=== PATIENT | female | born 1940 | race Caucasian/White ===

== ENCOUNTER 2016-07-26 16:53 | Emergency (ER) | payer BC, OTHER ==
[~2016-07-26] VITALS: Ht 149.9 cm; Wt 56.0 kg
[2016-07-26 17:04] VITALS: Ht 149.9 cm; Wt 56.0 kg
[2016-07-26 19:17] VITALS: BP 147/79; PULSE 92; RESP 18
--- NOTE | 2016-07-26 19:43 | ERD ---
ER Documentation Chief Complaint Date/Time DATE: 07/26/16 TIME: 19:42 Chief Complaint pt bib family with c/o "prolapsed uterus" at US today, PMD out of town HPI Patient is a 76-year-old female with hypertension who presents with a pelvic issue. The patient has a uterus which is protruding through the vagina. This is been there for the past 3 months. The patient went to get an ultrasound today and they were sent to the emergency department. Upon review of old medical records this the patient's first visit to the emergency department. There is been no bleeding. The patient's primary doctor is Dr. Kendall. She has not seen a automobile technician as of yet. ROS All systems reviewed and are negative except as per history of present illness. Allergies Allergies: Coded Allergies: No Known Allergy (Unverified , 07/26/16) PMhx/Soc History of Surgery: No Anesthesia Reaction: No Hx Neurological Disorder: No Hx Respiratory Disorders: No Hx Cardiac Disorders: Yes (HTN,high cholesterol) Hx Psychiatric Problems: No Hx Miscellaneous Medical Probl: Yes (diabetes) Hx Alcohol Use: No Hx Substance Use: No Hx Tobacco Use: No Smoking Status: Never smoker FmHx Family History: diabetes Physical Exam Vitals Vital Signs Date Time Temp Pulse Resp B/P Pulse Ox O2 Delivery O2 Flow Rate FiO2 07/26/16 19:17 92 18 147/79 96 Room Air 07/26/16 17:04 98.3 90 16 153/90 99 Physical Exam Const: No acute distress Head: Atraumatic Eyes: Normal Conjunctiva ENT: Normal External Ears, Nose and Mouth. Neck: Full range of motion..~ No meningismus. Resp: Clear to auscultation bilaterally Cardio: Regular rate and rhythm, no murmurs Abd: Soft, non tender, non distended. Normal bowel sounds Skin: No petechiae or rashes Back: No midline or flank tenderness Ext: No cyanosis, or edema Neur: Awake and alert : Patient has an obvious uterine prolapse at this time, I attempted to reduce uterine prolapse but it very quickly pushes back out through the vagina Procedures/MDM Patient is a 76-year-old female who presents with uterine prolapse. I discussed with the family the options of using a pessary versus having surgery to repair this or do a hysterectomy. The patient will need to follow-up with a automobile technician for further treatment. I do not believe the patient requires admission at the hospital at this time. I believe outpatient management is appropriate. The patient can return for worsening symptoms. Departure Diagnosis: Primary Impression: Uterine prolapse Condition: Fair Patient Instructions: Pelvic Organ Prolapse: Surgery for Uterine Prolapse Referrals: ALIZE EARL MD Additional Instructions: Specialist:Usted tiene nicola condicin mdica que requiere que maribel a un especialista dentro de los prximos 1-2 olvera.POR FAVOR,CON MIMS SEGUIMIENTO DE PRIMARIA PHSICIAN refferal. SI USTED NO TIENE UN MDICO GENERAL Y / O USTED NO PUEDE PAGAR abbie a un mdico,los siguientes saez RECURSOS sido suministrado a usted. ES MIMS RESPONSABILIDAD PARA SER VISTOS POR EL ESPECIALISTA: OYSI PRESLEY MD Jul 26, 2016 19:43
== END 2016-07-26 19:17 | disposition home or self-care (01) ==
LOC: E/R 16:53
DX: N81.4 Uterovaginal prolapse, unspecified (principal); I10 Essential (primary) hypertension; E11.9 Type 2 diabetes mellitus without complications
CPT/HCPCS: 99282

== ENCOUNTER 2016-12-27 06:48 | Day surgery (SDC) | payer BC ==
--- NOTE | 2016-12-26 16:28 | PREOPHP ---
DATE OF ADMISSION: 12/27/2016 CHIEF COMPLAINT: The patient was brought by the family complaining of something coming through the vagina for several months now. HISTORY OF PRESENT ILLNESS: This is a 76-year-old female, 8, para 8, has been menopausal for many years, who lately has been complaining of something coming from the vagina. The family has been aware of this also for a while. She was brought in actually with diagnosis of uterine prolapse. She has been treated with a pessary before, but had great difficulty using this, and both the patient and family desire a surgical approach and solution to the problem. A Le Fort procedure was proposed to the family and patient. The alternatives to this, the continued use of pessary, the benefits, the risks and possible complications were discussed in detail. This was done both in Urdu and Macedonian. All their questions were answered to their satisfaction, and she signed the appropriate surgical informed consent. PAST MEDICAL HISTORY: The patient has a long history of hypertension, been treated with several medications by her primary physician. She had a medical clearance from her physician actually for this surgery to take place. She denies diabetes, denies renal disease, denies liver disease, denies neurological problems. ALLERGIES: SHE HAS NO ALLERGIES. OBSTETRICAL HISTORY: Patient had 8 pregnancies and 8 vaginal deliveries. FAMILY HISTORY: Entirely unremarkable. REVIEW OF SYSTEMS: A 12-point review of systems is noncontributory. PHYSICAL EXAMINATION: Well developed and nourished, in no distress. Alert and oriented x3. Height of 4 feet 2 inches and weight 130 pounds. BMI is 29. VITAL SIGNS: Showed temperature to be 98; blood pressure 170/78; respirations 60/min; pulse is 80/min, regular. HEENT: Within normal limits. Pupils are PERRLA. NECK: Supple. Thyroid is not palpable. There is no lymphadenopathy. BREASTS: Showed no masses or lumps. LUNGS: Are clear to percussion, auscultation. HEART: Revealed normal sinus rhythm without a murmur. ABDOMEN: Soft. No organomegalies or hernias. PELVIC EXAM: Uterus is thoroughly prolapsed; it is a complete procidentia. Bimanual exam, uterus small, mobile. There are no adnexal masses. EXTREMITIES: Examination of lower extremities is positive for bilateral varicosities in both legs. There is no ankle edema. 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 PLAN: The patient is to be admitted for a Le Fort procedure under general anesthesia. Dictated By: Joe Cabello MD /[email or web address]/manan /Document#: [id number]
[~2016-12-27] VITALS: Ht 144.8 cm; Wt 45.4 kg
[2016-12-27] VITALS (29 sets, daily range): BP systolic 128–189; BP diastolic 73–95; PULSE 82–96; RESP 16–29
[~2016-12-27 06:48] MED LIST: LACTATED RINGER'S 1,000 ML IV* SCH
[2016-12-27] MEDS ORDERED: LIDOCAINE 2%/EPI 30 ML INJ ONE (07:55)
[2016-12-27] MEDS ORDERED: osteoporosis med PO (07:58)
[2016-12-27] MEDS ORDERED: bp med PO (07:58)
[2016-12-27] MEDS ORDERED: FENTAnyl 50 MCG/ML VIAL ONE (08:06)
[2016-12-27] MEDS ORDERED: PROPOFOL 20 ML ONE (08:24)
[2016-12-27] MEDS ORDERED: CEFAZOLIN 1 GM INJ ONE (08:24)
[2016-12-27] MEDS ORDERED: LIDOCAINE 2% (SDV) 5 ML INJ ONE (08:24)
[2016-12-27] MEDS ORDERED: SUCCINYLCHOLINE CHLORIDE 100 MG/5 ML SYG IV ONE (08:24)
[2016-12-27] MEDS ORDERED: ROCURONIUM 50 MG INJ ONE (08:24)
[2016-12-27] MEDS ORDERED: LABETALOL HCL 20MG INJ IV PRN (08:30)
[2016-12-27] MEDS ORDERED: DIPHENHYDRAMINE 50 MG INJ IV PRN (08:30)
[2016-12-27] MEDS ORDERED: FENTAnyl 50 MCG/ML VIAL IV PRN ×2 (08:30)
[2016-12-27] MEDS ORDERED: METOCLOPRAMIDE 10 MG INJ IV PRN (08:30)
[2016-12-27] MEDS ORDERED: HYDROmorphONE (0.2 MG/ML) 10ML SYG IV PRN ×2 (08:30)
[2016-12-27] MEDS ORDERED: ONDANSETRON 4 MG INJ IV PRN ×2 (08:30→10:00)
[2016-12-27] MEDS ORDERED: hydrALAzine 20 MG INJ IV PRN (08:30)
[2016-12-27] MEDS ORDERED: MEPERIDINE 25 MG INJ IV PRN (08:30)
[2016-12-27] MEDS ORDERED: SUGAMMADEX SODIUM 200 MG/2 ML VIAL IV ONE (09:26)
--- NOTE | 2016-12-27 09:42 | OPR ---
Operative Report Planned Procedure Free Text/Dictation Le Forte procedure under general anesthesia.No complications. Procedure date Dec 27, 2016 Procedure(s) Le forte procedure Performed by Dr.Carlos Bobby Cabello Anesthesiologist: APOLINAR SEGURA Anesthesia Type: general Procedure Description Under satisfactory [] anesthesia, a Le Forte procedure was done in the usual fashion.No complications. Post-Procedure Post-procedure diagnosis Same Findings: Complete procidentia. Complication(s): no Pt Condition post procedure: stable Disposition: PACU Post-procedure comments All counts correct 3 times. Physician Certification I, the undersigned physician, hereby certify that I have discussed the procedure described in this consent form with this patient (or the patient's legal solar sales representative), including: * The risk and benefits of the procedure; * Any adverse reactions that may reasonably be expected to occur; * Any alternative efficacious methods of treatment which may be medically viable ; * The potential problems that may occur during recuperation; * Potential for blood transfusion and associated risks/benefits; and * Any research or economic interest I may have regarding this treatment. I further certify that the patient/legally responsible person was encouraged to ask question and that all questions were answered. CINDY CABELLO MD Dec 27, 2016 09:42
[2016-12-27] MEDS ORDERED: CEFAZOLIN 1 GM/50 ML (PMX) 50 ML IVPB SCH (10:00)
[2016-12-27] MEDS ORDERED: morphine 2 MG INJ IV PRN (10:00)
[2016-12-27] MEDS ORDERED: IBUPROFEN 600 MG TAB PO PRN (10:00)
[2016-12-27] MEDS ORDERED: OXYCODONE/ACETAMINOPHEN (5/325) TAB PO PRN ×2 (10:00)
[2016-12-27] MEDS ORDERED: ACETAMINOPHEN 325 MG TAB PO PRN (10:00)
--- NOTE | 2016-12-27 10:58 | OPR ---
DATE OF OPERATION: 12/27/2016 ANESTHESIOLOGIST: Dr. Michelle. PREOPERATIVE DIAGNOSIS: Complete uterus prolapse, total procidentia. POSTOPERATIVE DIAGNOSIS: Complete uterus prolapse, total procidentia. OPERATION PERFORMED: Le Fort procedure. ANESTHESIA: General with Dr. Michelle. ESTIMATED BLOOD LOSS: 50 cc or less. COMPLICATIONS: None. SPECIMENS: The vaginal burrows were sent to Pathology. PROCEDURE AND FINDINGS: With the patient under general anesthesia, laid on the table in the dorsal lithotomy position. Lower abdomen, upper thighs, perineum and vagina were prepped with Betadine, and then a Zayas catheter was inserted. A sterile dressing was applied. A small weighted retractor was placed on the posterior vaginal wall and the vaginal mucosa was infiltrated anteriorly and posteriorly with a diluted solution of 2 percent lidocaine with epinephrine, a total of 20 cc. Then, the dissection was started anteriorly by removing the anterior vaginal mucosa all the way up to the vesicourethral angle. Posteriorly, a similar piece of vaginal mucosa was also removed. Then the uterus was imbricated with several sutures of 0 Vicryl. This was done in several layers until the uterus had disappeared in the pelvis. Then the vaginal mucosa was closed with a continuous stitch of double 0 Vicryl. Good hemostasis was observed. The urine was clear and abundant in the bag. A rectal examination was done and no sutures were palpated there. The patient withstood the procedure well, was taken to recovery room with all vital signs stable. Needle, sponge, and instrument count, during the procedure was correct twice. Dictated By: Joe Cabello MD /camron/viki /Document#: [id number]
[2016-12-27 13:42] LABS: ALBUMIN 4.3 g/dl (3.3-4.9); ALBUMIN/GLOBULIN RATIO 1.3; BILIRUBIN,INDIRECT 0.3 mg/dl (0-1.1); BILIRUBIN,TOTAL 0.3 mg/dl (0.2-1.3); CALCIUM 9.8 mg/dl (8.4-10.2); CREATININE 0.74 mg/dl (0.44-1.00); TOTAL PROTEIN 7.6 g/dl (6.1-8.1)
--- NOTE | 2016-12-27 15:07 | PD.PPDC ---
[employer] REPRESENTATIVE Discharge Instruction Diagnosis Final Diagnosis: uterine prolapse cystocele Condition Patient Condition: Stable Diet Diet: Resume Regular Diet Activity/Restrictions Activity: May Shower Restrictions: No Exercising No Lifting Minimize Stair-climbing No Sexual Activity Nothing in the Vagina No [place] No Tampons, douche Follow-up Follow-up with Physician: 8, Week/Weeks Return to clinic for MECHANIC/WELDER Instructions: Fever greater than 101 Chills Worsening abdominal pain Excessive Vaginal Bleeding More than 2 pads per hour Unable to tolerate diet MATTHEW CASTILLO MD Dec 27, 2016 15:07
[2016-12-27] MEDS: LACTATED RINGER'S 1,000 ML IV SCH ×2 (18:10→22:15)
[2016-12-27] MEDS: CEFAZOLIN 1 GM/50 ML (PMX) 50 ML IVPB SCH (22:16)
[2016-12-28 05:23] LABS: BASOPHILS % 0.1 % (0.0-2.0); EOSINOPHILS % 0.3 % (0.0-7.0); HEMATOCRIT 33.2 % (37.0-47.0); HEMOGLOBIN 11.2 g/dl (12.0-16.0); LYMPHOCYTES # 1.7 10^3/ul (0.8-2.9); LYMPHOCYTES % 21.1 % (15.0-51.0); MEAN CORPUSCULAR HEMOGLOBIN 29.2 pg (29.0-33.0); MEAN CORPUSCULAR HGB CONC 33.7 g/dl (32.0-37.0); MEAN CORPUSCULAR VOLUME 86.7 fl (82.0-101.0); MEAN PLATELET VOLUME 10.1 fl (7.4-10.4); MONOCYTE # 0.6 10^3/ul (0.3-0.9); MONOCYTES % 7.9 % (0.0-11.0); NEUTROPHILS % 70.1 % (39.0-77.0); PLATELET COUNT 205 10^3/UL (140-415); RED BLOOD COUNT 3.83 10^6/ul (4.20-5.40); RED CELL DISTRIBUTION WIDTH 12.1 % (11.5-14.5); WHITE BLOOD COUNT 7.9 10^3/ul (4.8-10.8)
[2016-12-28] MEDS: CEFAZOLIN 1 GM/50 ML (PMX) 50 ML IVPB SCH (06:19)
[2016-12-28 07:00] VITALS: BP 142/70; RESP 18
[2016-12-28 08:23] LABS: ALBUMIN 3.3 g/dl (3.3-4.9); ALBUMIN/GLOBULIN RATIO 1.26; BILIRUBIN,INDIRECT 0.4 mg/dl (0-1.1); BILIRUBIN,TOTAL 0.4 mg/dl (0.2-1.3); CALCIUM 9.3 mg/dl (8.4-10.2); CREATININE 0.57 mg/dl (0.44-1.00); TOTAL PROTEIN 5.9 g/dl (6.1-8.1)
[2016-12-28 08:30] LABS: POTASSIUM 2.6 mmol/L (3.5-5.1)
[2016-12-28] MEDS ORDERED: POTASSIUM CHLORIDE 250 ML IVPB ONE (10:00)
[2016-12-28 14:00] VITALS: BP 141/76; RESP 20
[2016-12-28] MEDS: LACTATED RINGER'S 1,000 ML IV SCH ×2 (15:10→21:55)
--- NOTE | 2016-12-28 16:10 | PN ---
Date/Time of Note Date/Time of Note DATE: 12/28/16 TIME: 16:08 Assessment/Plan Lines/Catheters IV Catheter Type (from Nrsg): Peripheral IV Dacosta in Place (from Nrsg): Yes Assessment/Plan Chief Complaint/Hosp Course A s/p Le Fort procedure stable Hypokalemia P remove dacosta in am poss discharge home in am after voiding Problems: Subjective 24 Hr Interval Summary Constitutional: no complaints Feeding: advancing diet Pain Control: well controlled Exam/Review of Systems Vital Signs Vitals Vital Signs Date Time Temp Pulse Resp B/P Pulse Ox O2 Delivery O2 Flow Rate FiO2 12/28/16 14:00 97.9 83 20 141/76 97 12/27/16 12:45 Room Air 12/27/16 09:47 8.0 Intake and Output 12/27/16 12/27/16 12/28/16 15:00 23:00 07:00 Intake Total 0 ml 650 ml 1120 ml Output Total 455 ml 1700 ml Balance -455 ml 650 ml -580 ml Exam Constitutional: alert, oriented, well developed Psych: nl mood/affect, no complaints Head: atraumatic, normocephalic Eyes: EOMI, nl conjunctiva, nl lids, nl sclera ENMT: mucosa pink and moist, nl external ears & nose, nl lips & teeth, nl nasal mucosa & septum Neck: non-tender, supple Respiratory: clear to auscultation, normal air movement Cardiovascular: nl pulses, regular rate and rhythm Gastrointestinal: nl liver, spleen, non-tender, soft Musculoskeletal: nl extremities to inspection, nl gait and stance Extremities: normal pulses Neurological: LBD TEACHER II-XII intact, nl mental status, nl speech, nl strength Skin: nl turgor, rash or lesions Lymph: nl lymph nodes Results Result Diagram: 12/28/16 0455 12/28/16 0455 MATTHEW CASTILLO MD Dec 28, 2016 16:10
[2016-12-29] MEDS: LACTATED RINGER'S 1,000 ML IV SCH ×2 (01:42→11:42)
[2016-12-29 01:58] VITALS: BP 153/73; RESP 18
[2016-12-29 05:30] LABS: BASOPHILS % 0.5 % (0.0-2.0); EOSINOPHILS # 0.1 10^3/ul (0.0-0.5); EOSINOPHILS % 1.5 % (0.0-7.0); HEMATOCRIT 33.4 % (37.0-47.0); HEMOGLOBIN 11.3 g/dl (12.0-16.0); LYMPHOCYTES # 1.8 10^3/ul (0.8-2.9); LYMPHOCYTES % 27.2 % (15.0-51.0); MEAN CORPUSCULAR HEMOGLOBIN 29.8 pg (29.0-33.0); MEAN CORPUSCULAR HGB CONC 33.8 g/dl (32.0-37.0); MEAN CORPUSCULAR VOLUME 88.1 fl (82.0-101.0); MEAN PLATELET VOLUME 10.5 fl (7.4-10.4); MONOCYTE # 0.6 10^3/ul (0.3-0.9); MONOCYTES % 8.5 % (0.0-11.0); NEUTROPHILS % 61.5 % (39.0-77.0); PLATELET COUNT 214 10^3/UL (140-415); RED BLOOD COUNT 3.79 10^6/ul (4.20-5.40); RED CELL DISTRIBUTION WIDTH 12.3 % (11.5-14.5); WHITE BLOOD COUNT 6.5 10^3/ul (4.8-10.8)
[2016-12-29 06:08] LABS: ALBUMIN 3.2 g/dl (3.3-4.9); ALBUMIN/GLOBULIN RATIO 1.14; BILIRUBIN,INDIRECT 0.2 mg/dl (0-1.1); BILIRUBIN,TOTAL 0.2 mg/dl (0.2-1.3); CALCIUM 9.1 mg/dl (8.4-10.2); CREATININE 0.59 mg/dl (0.44-1.00)
[2016-12-29 06:31] LABS: POTASSIUM 2.6 mmol/L (3.5-5.1)
[2016-12-29] MEDS ORDERED: POTASSIUM CHLORIDE (SR) 20 MEQ TAB PO STA (06:50)
[2016-12-29 07:36] VITALS: BP 173/88; RESP 18
[2016-12-29] MEDS ORDERED: POTASSIUM CHLORIDE 250 ML IVPB ONE (07:45)
[2016-12-29 08:22] VITALS: BP 143/87; PULSE 81
--- NOTE | 2016-12-29 08:56 | CONS ---
Date/Time of Note Date/Time of Note DATE: 12/29/16 TIME: 08:43 Assessment/Plan Assessment/Plan Problems: (1) Hypokalemia Status: Acute Comment: - K this am 2.6 and replacement give via IV and PO. Will check Mg level as well and replace as needed. Repeat BMP for 1400 - Patient not experiencing vomiting, diarrhea, and not on any medications to explain hypokalemia - Renal function stable as well - Pain control per primary team - All documentation and labs were reviewed. All patients questions were answered and concerns addressed. >30 mins was spent discussing plan with patient. Thank you for this consultation. Please call with questions. Consultation Date/Type/Reason Admit Date/Time 12/27/16 Date of Consultation: Dec 29, 2016 Type of Consultation: Internal Medicine Reason for Consultation Management of hypokalemia Referring Provider: MATTHEW CASTILLO MD Hx of Present Illness 76-year-old menopausal female, 8, para 8, presented to hospital for Le fort procedure on 12/27/16 after experiencing uterine prolapse. Patient's surgery was uneventful and dacosta in place. Patient was found to have a potassium level of 2.6 this am and medicine was consulted for comanagement. Patient resting comfortable and only complaining of throat pain. Denies any fevers, chills, nausea, vomiting, chest pain, palpitations, shortness of breath , or abdominal issues. She has not had a bowel movement yet today as well but states has not had any episodes of diarrhea previously. Constitutional: no complaints Eyes: no complaints ENT: sore throat Respiratory: no complaints Cardiovascular: no complaints, No chest pain, No lightheadedness, No palpitations Gastrointestinal: No decreased appetite, No diarrhea, No nausea, No passing stool, No vomiting Genitourinary: No discharge, No hematuria Musculoskeletal: back pain Skin: no complaints Neurologic: no complaints Endocrine: no complaints Lymphatic: no complaints Psychological: nl mood/affect, no complaints Immunologic: no complaints Past Medical History Medical History: hypertension Past Surgical History Past Surgical Hx: other (Le fort procedure) Family History Significant Family History: no pertinent family hx Social History Alcohol Use: none Smoking Status: Never smoker Drug Use: none Exam/Review of Systems Vital Signs Vitals Vital Signs Date Time Temp Pulse Resp B/P Pulse Ox O2 Delivery O2 Flow Rate FiO2 12/29/16 08:22 81 143/87 12/29/16 07:36 98.1 18 95 12/27/16 12:45 Room Air 12/27/16 09:47 8.0 Intake and Output 12/28/16 12/28/16 12/29/16 15:00 23:00 07:00 Intake Total 2090 ml 280 ml Output Total 1200 ml Balance 890 ml 280 ml Exam Constitutional: alert, oriented, well developed, No distress Psych: no complaints Head: atraumatic, normocephalic Eyes: EOMI, nl sclera ENMT: mucosa pink and moist Neck: non-tender, supple Respiratory: clear to auscultation, normal air movement, No crackles/rales, No diminished breath sounds, No wheezing Cardiovascular: nl pulses, regular rate and rhythm, No systolic murmur Gastrointestinal: non-tender, soft, No distended, No rebound or guarding Musculoskeletal: nl extremities to inspection Extremities: normal pulses Neurological: DITCHING MACHINE ENGINEER II-XII intact, nl speech Skin: nl turgor Lymph: nl lymph nodes Results Result Diagram: 12/29/1643612/29/16436 Results 24 hrs Laboratory Tests Test 12/29/16 04:37 White Blood Count 6.5 Red Blood Count 3.79 L Hemoglobin 11.3 L Hematocrit 33.4 L Mean Corpuscular Volume 88.1 Mean Corpuscular Hemoglobin 29.8 Mean Corpuscular Hemoglobin Concent 33.8 Red Cell Distribution Width 12.3 Platelet Count 214 Mean Platelet Volume 10.5 H Neutrophils % 61.5 Lymphocytes % 27.2 Monocytes % 8.5 Eosinophils % 1.5 Basophils % 0.5 Nucleated Red Blood Cells % 0.0 Neutrophils # (Manual) 4.0 Lymphocytes # 1.8 Monocytes # 0.6 Eosinophils # 0.1 Basophils # 0.0 Nucleated Red Blood Cells # 0.0 Sodium Level 138 Potassium Level 2.6 *L Chloride Level 101 Carbon Dioxide Level 32 H Anion Gap 8 Blood Urea Nitrogen 9 Creatinine 0.59 Glucose Level 102 Calcium Level 9.1 Total Bilirubin 0.2 Direct Bilirubin 0.00 Indirect Bilirubin 0.2 Aspartate Amino Transf (AST/SGOT) 16 Alanine Aminotransferase (ALT/SGPT) 26 Alkaline Phosphatase 54 Total Protein 6.0 L Albumin 3.2 L Globulin 2.80 Albumin/Globulin Ratio 1.14 Medications Medications Current Medications Lactated Ringer's (Lr) 1,000 ml @ 100 mls/hr Q10H IV Last administered on 21:55; Admin Dose 100 MLS/HR; Start 12/27/16 at 09:42 Acetaminophen (Tylenol Tab) 650 mg Q4H PRN PO PAIN LEVEL 1-5; Start 12/27/16 at 10:00 Ibuprofen (Motrin) 600 mg Q8H PRN PO PAIN AND OR ELEVATED TEMP; Start 12/27/16 at 10:00 Oxycodone/ Acetaminophen (Percocet (5/ 325)) 1 tab Q4H PRN PO PAIN LEVEL 6-10 Last administered on 12/28/16 14:14; Admin Dose 1 TAB; Start 12/27/16 at 10:00 Morphine Sulfate (morphine) 2 mg Q2H PRN IV BREAKTHROUGH PAIN Last administered on 12/27/16 20:09; Admin Dose 2 MG; Start 12/27/16 at 10:00 Ondansetron HCl (Zofran Inj) 4 mg Q6H PRN IV NAUSEA AND/OR VOMITING; Start 12/27 at 10:00 Oxycodone/ Acetaminophen 2 tab 2 tab Q4H PRN PO PAIN; Start 12/27/16 at 10:00 Potassium Chloride (KCl 40 MEQ/250 ML NS) 250 ml @ 62.5 mls/hr ONCE ONCE IVPB Last administered on 12/29/16 08:16; Admin Dose 62.5 MLS/HR; Start 12/29/16 at 07:45; Stop 12/29/16 at 11:44 BRI MCKEON MD Dec 29, 2016 08:55
[2016-12-29 14:59] LABS: CALCIUM 9.8 mg/dl (8.4-10.2); CREATININE 0.62 mg/dl (0.44-1.00); POTASSIUM 4.2 mmol/L (3.5-5.1)
[2016-12-29 16:40] VITALS: BP 147/84; RESP 20
--- NOTE | 2016-12-29 17:15 | DS ---
Date/Time of Note Date/Time of Note DATE: 12/29/16 TIME: 17:09 Discharge Summary Admission/Discharge Info Admit Date/Time 12/27/16 Discharge Date/Time 12/29/16 1900 Discharge Diagnosis s/p LeFort procedure stable Patient Condition: Stable Consults hospitalist for hypokalemia Procedures Le Fort procedure Hospital Course 76-year-old menopausal female, 8, para 8, presented to hospital for Le fort procedure on 12/27/16 after experiencing uterine prolapse. Patient's surgery was uneventful and dacosta in place. Patient was found to have a potassium level of 2.6 this am and medicine was consulted for comanagement. Patient resting comfortable and only complaining of throat pain. Denies any fevers, chills, nausea, vomiting, chest pain, palpitations, shortness of breath , or abdominal issues. She has not had a bowel movement yet today as well but states has not had any episodes of diarrhea previously. potassium level 2.6 had infusion 40 meq went up to 4.2 had bowel movement , if patient void after dacosta out discharge home if not able to void go home with leg bag Home Meds Reported Medications [osteoporosis med] No Conflict Check, PO once a week 12/27/16 [bp med] No Conflict Check, PO DAILY 12/27/16 Follow-up Plan call for f/u appointment Primary Care Provider Angie Kendall Pending Labs Laboratory Tests Test 12/29/16 04:37 12/29/16 14:05 White Blood Count 6.510^3/ul (4.8-10.8) Red Blood Count 3.7910^6/ul (4.20-5.40) Hemoglobin 11.3g/dl (12.0-16.0) Hematocrit 33.4% (37.0-47.0) Mean Corpuscular Volume 88.1fl (82.0-101.0) Mean Corpuscular Hemoglobin 29.8pg (29.0-33.0) Mean Corpuscular Hemoglobin Concent 33.8g/dl (32.0-37.0) Red Cell Distribution Width 12.3% (11.5-14.5) Platelet Count 54793^3/UL (140-415) Mean Platelet Volume 10.5fl (7.4-10.4) Neutrophils % 61.5% (39.0-77.0) Lymphocytes % 27.2% (15.0-51.0) Monocytes % 8.5% (0.0-11.0) Eosinophils % 1.5% (0.0-7.0) Basophils % 0.5% (0.0-2.0) Nucleated Red Blood Cells % 0.0/100WBC (0.0-0.0) Neutrophils # (Manual) 4.010^3/ul (1.7-7.5) Lymphocytes # 1.810^3/ul (0.8-2.9) Monocytes # 0.610^3/ul (0.3-0.9) Eosinophils # 0.110^3/ul (0.0-0.5) Basophils # 0.010^3/ul (0.0-0.1) Nucleated Red Blood Cells # 0.010^3/ul (0.0-0.0) Sodium Level 138mmol/L (135-144) 141mmol/L (135-144) Potassium Level 2.6mmol/L (3.5-5.1) 4.2mmol/L (3.5-5.1) Chloride Level 101mmol/L (97-110) 106mmol/L (97-110) Carbon Dioxide Level 32mmol/L (21-31) 26mmol/L (21-31) Anion Gap 8 (8-16) 13 (8-16) Blood Urea Nitrogen 9mg/dl (7-20) 11mg/dl (7-20) Creatinine 0.59mg/dl (0.44-1.00) 0.62mg/dl (0.44-1.00) Glucose Level 102mg/dl (70-220) 131mg/dl (70-220) Calcium Level 9.1mg/dl (8.4-10.2) 9.8mg/dl (8.4-10.2) Magnesium Level 1.7mg/dl (1.7-2.5) Total Bilirubin 0.2mg/dl (0.2-1.3) Direct Bilirubin 0.00mg/dl (0.00-0.20) Indirect Bilirubin 0.2mg/dl (0-1.1) Aspartate Amino Transf (AST/SGOT) 16IU/L (15-46) Alanine Aminotransferase (ALT/SGPT) 26IU/L (13-69) Alkaline Phosphatase 54IU/L (42-121) Total Protein 6.0g/dl (6.1-8.1) Albumin 3.2g/dl (3.3-4.9) Globulin 2.80g/dl (1.3-3.2) Albumin/Globulin Ratio 1.14 MATTHEW CASTILLO MD Dec 29, 2016 17:15
== END 2016-12-29 18:55 | disposition home or self-care (01) ==
LOC: SDS 06:48 → MS1 12:03 → SDS 12-29 18:55
PROVIDERS: ATTEND Specialist
DX: D07.2 Carcinoma in situ of vagina (principal); N81.3 Complete uterovaginal prolapse; I10 Essential (primary) hypertension
CPT/HCPCS: 57120; 80048; 80053; 83735; 85025; 86850; 86900; 86901; 88305; J0360; J0690; J2175; J2270; J3010; J3480; J7120; Z7512; Z7610; J7999